=== PATIENT | female | born 1995 | race Caucasian/White ===

== ENCOUNTER 2017-06-16 16:05 | Emergency (ER) | payer SELFPAY ==
[~2017-06-16] VITALS: Ht 154.9 cm; Wt 81.6 kg
[2017-06-16 16:21] VITALS: BP 124/71
== END 2017-06-16 20:45 | disposition left against medical advice (07) ==
LOC: ER 16:19
DX: R10.9 Unspecified abdominal pain (principal); Z53.21 Procedure and treatment not carried out due to patient leaving prior to being seen by health care provider